=== PATIENT | male | born 1990 | race Caucasian/White ===

== ENCOUNTER 2017-06-23 21:26 | Emergency (ER) | payer OTHER, SELFPAY ==
--- NOTE | 2017-06-23 22:21 | RAD REPORT ---
EXAM DESCRIPTION: RAD - Chest Single View - 06/23/2017 10:14 pm CLINICAL HISTORY: Chest pain. Asthma. COMPARISON: None. FINDINGS: Portable technique limits examination quality. The lungs are grossly clear. The heart is normal in size. No displaced fractures. IMPRESSION: No acute intrathoracic process suspected.
[2017-06-23] MEDS ORDERED: CEFTRIAXONE 1000 MG/VIAL ONE (22:38)
[2017-06-23] MEDS ORDERED: AZITHROMYCIN 250 MG TAB ONE (22:38)
[2017-06-23] MEDS ORDERED: predniSONE 20 MG TAB ONE (22:39)
--- NOTE | 2017-06-23 22:59 | EDPHYS ---
Physician Documentation [facility] Name: Jean-Pierre Andrade Age: 27 yrs Sex: Male : 1990 Arrival Date: 06/23/2017 Time: 21:28 Bed 18 Private MD: ED Physician Gurvinder Goins HPI: 06/23 22:10 This 27 yrs old Male presents to ER via Wheelchair with complaints of Flu félix Symptoms, Asthma Exacerbation, Cough. 22:10 This 27 yrs old Male presents to ER via Wheelchair with complaints of Flu félix Symptoms, Asthma Exacerbation, Cough. 22:10 The patient presents to the emergency department with wheezing, Current therapy: félix albuterol nebs, that began without any particular precipitating event. Onset: The symptoms/episode began/occurred today. Modifying factors: The symptoms are alleviated by nothing. Associated signs and symptoms: The patient has no apparent associated signs or symptoms. Severity of symptoms: At their worst the symptoms were mild in the emergency department the symptoms are unchanged. The patient has not experienced similar symptoms in the past. Historical: - Allergies: 21:51 No Known Allergies; aa1 - Home Meds: 21:51 Albuterol Inhl [Active]; aa1 - PMHx: 21:51 Asthma; aa1 - PSHx: 21:51 aux lymph node removed; aa1 - Immunization history:: Flu vaccine is not up to date. - Social history:: Smoking status: Patient/guardian denies using tobacco. ROS: 22:11 Constitutional: Negative for fever, chills, and weight loss, Eyes: Negative for injury, félix pain, redness, and discharge, ENT: Negative for injury, pain, and discharge, Neck: Negative for injury, pain, and swelling, Cardiovascular: Negative for chest pain, palpitations, and edema, Abdomen/GI: Negative for abdominal pain, nausea, vomiting, diarrhea, and constipation, Back: Negative for injury and pain, : Negative for injury, bleeding, discharge, and swelling, MS/Extremity: Negative for injury and deformity, Skin: Negative for injury, rash, and discoloration, Neuro: Negative for headache, weakness, numbness, tingling, and seizure, Psych: Negative for depression, anxiety, suicide ideation, homicidal ideation, and hallucinations, Allergy/Immunology: Negative for hives, rash, and allergies, Endocrine: Negative for neck swelling, polydipsia, polyuria, polyphagia, and marked weight changes, Hematologic/Lymphatic: Negative for swollen nodes, abnormal bleeding, and unusual bruising. 22:11 Respiratory: Positive for cough, shortness of breath, on exertion. Exam: 22:11 Constitutional: This is a well developed, well nourished patient who is awake, alert, félix and in no acute distress. Head/Face: Normocephalic, atraumatic. Eyes: Pupils equal round and reactive to light, extra-ocular motions intact. Lids and lashes normal. Conjunctiva and sclera are non-icteric and not injected. Cornea within normal limits. Periorbital areas with no swelling, redness, or edema. ENT: Nares patent. No nasal discharge, no septal abnormalities noted. Tympanic membranes are normal and external auditory canals are clear. Oropharynx with no redness, swelling, or masses, exudates, or evidence of obstruction, uvula midline. Mucous membranes moist. Neck: Trachea midline, no thyromegaly or masses palpated, and no cervical lymphadenopathy. Supple, full range of motion without nuchal rigidity, or vertebral point tenderness. No Meningismus. Chest/axilla: Normal chest wall appearance and motion. Nontender with no deformity. No lesions are appreciated. Cardiovascular: Regular rate and rhythm with a normal S1 and S2. No gallops, murmurs, or rubs. Normal PMI, no JVD. No pulse deficits. Abdomen/GI: Soft, non-tender, with normal bowel sounds. No distension or tympany. No guarding or rebound. No evidence of tenderness throughout. Back: No spinal tenderness. No costovertebral tenderness. Full range of motion. Male : Normal genitalia with no discharge or lesions. Skin: Warm, dry with normal turgor. Normal color with no rashes, no lesions, and no evidence of cellulitis. MS/ Extremity: Pulses equal, no cyanosis. Neurovascular intact. Full, normal range of motion. Neuro: Awake and alert, GCS 15, oriented to person, place, time, and situation. Cranial nerves II-XII grossly intact. Motor strength 5/5 in all extremities. Sensory grossly intact. Cerebellar exam normal. Normal gait. Psych: Awake, alert, with orientation to person, place and time. Behavior, mood, and affect are within normal limits. 22:11 Respiratory: mild respiratory distress is noted, Respirations: normal, Breath sounds: rales, that are mild, bronchial sounds, that are mild, decreased breath sounds, that are mild, that are moderate, rhonchi, that are mild, wheezing: expiratory Vital Signs: 21:51 BP 126 / 62; Pulse 122; Resp 20; Temp 99.4(O); Pulse Ox 100% on R/A; Weight 65.77 kg; aa1 Height 5 ft. 5 in. (165.10 cm); Pain 6/10; 23:48 BP 113 / 64; Pulse 124; Resp 17 S; Pulse Ox 99% on R/A; Pain 0/10; jd3 21:51 Body Mass Index 24.13 (65.77 kg, 165.10 cm) aa1 MDM: 22:03 Patient medically screened. [facility] 22:11 Data reviewed: vital signs, nurses notes, lab test result(s), radiologic studies. [facility] 06/23 22:10 Order name: Influenza Screen (a \T\ B) [facility] 06/23 23:23 Order name: Influenza Screen (A [facility] 06/23 22:02 Order name: CXR XRAY [facility] 06/23 22:22 Order name: RAD; Complete Time: 22:58 EDMS Administered Medications: 22:27 Drug: Zithromax 500 mg Route: PO; jd3 23:02 Follow up: Response: No adverse reaction [facility] 22:27 Drug: Rocephin (cefTRIAXone) 1 grams Route: IM; Site: right deltoid; jd3 23:02 Follow up: Response: No adverse reaction jd3 22:28 Drug: predniSONE 60 mg Route: PO; jd3 23:03 Follow up: Response: No adverse reaction jd3 23:09 Drug: Albuterol - atroVENT (3:1) (2.5 mg - 0.5 mg) 3 ml Route: Nebulizer; jd3 23:50 Follow up: Response: No adverse reaction jd3 Disposition: 06/23/17 22:58 Discharged to Home. Impression: Asthma, Acute upper respiratory infection, unspecified. - Condition is Stable. - Discharge Instructions: Asthma, Adult, Upper Respiratory Infection, Adult, Upper Respiratory Infection, Pediatric, Cool Mist Vaporizers, Upper Respiratory Infection, Adult, [id number], Asthma, Adult, [id number], Cough, Adult. - Prescriptions for Albuterol Sulfate 2.5 mg /3 mL (0.083 %) Inhalation Solution for Nebulization - inhale 1 unit by NEBULIZATION route every 8 hours As needed; 1 box. Zithromax Z- Colt 250 mg Oral Tablet - take 1 tablet by ORAL route as directed for 5 days Day 1 - take two (2) tablets one time. Day 2, 3, 4 , 5 take one (1) tablet once daily.; 6 tablet. Prednisone 20 mg Oral Tablet - take 2 tablet by ORAL route once daily for 5 days; 10 tablet. Albuterol Sulfate 90 mcg/actuation - inhale 1-2 puff by INHALATION route every 4-6 hours; 1 Inhaler. - Medication Reconciliation Form, Thank You Letter, Antibiotic Education, Prescription Opioid Use form. - Work release form (06/24/17 00:02). jd3 - Follow up: Private Physician; When: 2 - 3 days; Reason: Recheck today's complaints, Re-evaluation by your physician. - Problem is new. - Symptoms have improved. Signatures: Dispatcher [employer] Laura Barber, RN RN aa1 Gurvinder Goins MD MD cha Davies, Jonathon, RN RN jd3
--- NOTE | 2017-06-23 22:59 | ER ---
Nurse's Notes [facility] Name: Jean-Pierre Andrade Age: 27 yrs Sex: Male : 1990 Arrival Date: 06/23/2017 Time: 21:28 Bed 18 Private MD: Diagnosis: Asthma;Acute upper respiratory infection, unspecified Presentation: 06/23 21:49 Presenting complaint: Patient states: asthma exacerbation for past few hours. Reports aa1 taking albuterol with minimal relief. Also reports fever for past couple of days. Transition of care: patient was not received from another setting of care. Onset of symptoms was June 23, 2017. Care prior to arrival: None. 21:49 Method Of Arrival: Wheelchair aa1 21:49 Acuity: GEOVANI 4 aa1 Triage Assessment: 21:51 General: Appears in no apparent distress. comfortable, Behavior is calm, cooperative, aa1 appropriate for age. Historical: - Allergies: 21:51 No Known Allergies; aa1 - Home Meds: 21:51 Albuterol Inhl [Active]; aa1 - PMHx: 21:51 Asthma; aa1 - PSHx: 21:51 aux lymph node removed; aa1 - Immunization history:: Flu vaccine is not up to date. - Social history:: Smoking status: Patient/guardian denies using tobacco. Screenin:05 Abuse screen: Denies threats or abuse. Nutritional screening: No deficits noted. jd3 Tuberculosis screening: No symptoms or risk factors identified. Fall Risk None identified. Total Amaral Fall Scale indicates No Risk (0-24 pts). Assessment: 22:02 General: Appears in no apparent distress. uncomfortable, Behavior is calm, cooperative, jd3 appropriate for age. Pain: Complains of pain in head Pain currently is 6 out of 10 on a pain scale. Quality of pain is described as aching. Neuro: Level of Consciousness is awake, alert, obeys commands, Oriented to person, place, time, situation. Cardiovascular: Heart tones S1 S2 present Capillary refill < 3 seconds Patient's skin is warm and dry. Respiratory: Reports shortness of breath Airway is patent Respiratory effort is even, unlabored, Respiratory pattern is regular, symmetrical, Breath sounds are clear bilaterally. GI: Abdomen is flat, Bowel sounds present X 4 quads. Abd is soft and non tender X 4 quads. Reports nausea. : No signs and/or symptoms were reported regarding the genitourinary system. EENT: No signs and/or symptoms were reported regarding the EENT system. Derm: Skin is intact, Skin is dry, Skin is normal, Skin temperature is warm. Musculoskeletal: Circulation, motion, and sensation intact. Range of motion: intact in all extremities. 23:33 Reassessment: Patient appears in no apparent distress at this time. Patient and/or jd3 family updated on plan of care and expected duration. Pain level reassessed. Patient is alert, oriented x 3, equal unlabored respirations, skin warm/dry/pink. pt waiting for neb treatment before discharge Patient states feeling better. 23:49 Reassessment: Patient appears in no apparent distress at this time. Patient and/or jd3 family updated on plan of care and expected duration. Pain level reassessed. Patient is alert, oriented x 3, equal unlabored respirations, skin warm/dry/pink. pt reporting understanding of discharge instructions, even and steady gait upon discharge Patient states feeling better. Vital Signs: 21:51 BP 126 / 62; Pulse 122; Resp 20; Temp 99.4(O); Pulse Ox 100% on R/A; Weight 65.77 kg; aa1 Height 5 ft. 5 in. (165.10 cm); Pain 6/10; 23:48 BP 113 / 64; Pulse 124; Resp 17 S; Pulse Ox 99% on R/A; Pain 0/10; jd3 21:51 Body Mass Index 24.13 (65.77 kg, 165.10 cm) aa1 ED Course: 21:28 Patient arrived in ED. am2 21:51 Triage completed. aa1 21:51 Arm band placed on left wrist. Patient placed in an exam room, on a stretcher. aa1 22:01 Rylan Mitchell RN is Primary Nurse. jd3 22:03 Gurvinder Goins MD is Attending Physician. [facility] 22:06 Patient has correct armband on for positive identification. Bed in low position. Call jd3 light in reach. Side rails up X 1. Adult w/ patient. 22:13 X-ray completed. Portable x-ray completed in exam room. Patient tolerated procedure la2 well. 23:49 No provider procedures requiring assistance completed. Patient did not have IV access jd3 during this emergency room visit. Administered Medications: 22:27 Drug: Zithromax 500 mg Route: PO; jd3 23:02 Follow up: Response: No adverse reaction jd3 22:27 Drug: Rocephin (cefTRIAXone) 1 grams Route: IM; Site: right deltoid; jd3 23:02 Follow up: Response: No adverse reaction jd3 22:28 Drug: predniSONE 60 mg Route: PO; jd3 23:03 Follow up: Response: No adverse reaction jd3 23:09 Drug: Albuterol - atroVENT (3:1) (2.5 mg - 0.5 mg) 3 ml Route: Nebulizer; jd3 23:50 Follow up: Response: No adverse reaction jd3 Outcome: 22:58 Discharge ordered by MD. heard 23:49 Discharged to home ambulatory, with family. jd3 23:49 Condition: stable 23:49 Discharge instructions given to patient, family, Instructed on discharge instructions, follow up and referral plans. medication usage, Demonstrated understanding of instructions, follow-up care, medications, Prescriptions given X 4. 23:51 Patient left the ED. jd3 Signatures: Laura Reese, RN RN aa1 Gurvinder Goins MD MD cha Moreno, Amanda am2 Ardoin, Leslie la2 Davies, Jonathon, RN RN jd3
[2017-06-23] MEDS ORDERED: IPRATROPIUM BROM 0.5MG/2.5ML ONE (23:25)
[2017-06-23] MEDS ORDERED: ALBUTEROL 2.5 MG/3 ML NEB SOL ONE (23:25)
== END 2017-06-23 23:51 | disposition home or self-care (01) ==
LOC: ER 21:26
DX: J06.9 Acute upper respiratory infection, unspecified (principal); J45.909 Unspecified asthma, uncomplicated
CPT/HCPCS: 71045; 87804; 94640; 96372; 99284; J7512

== ENCOUNTER 2021-04-22 06:40 | Emergency (ER) | payer SELFPAY ==
[2021-04-22] MEDS ORDERED: predniSONE 20 MG TAB ONE (07:39)
[2021-04-22] MEDS ORDERED: DIPHENHYDRAMINE 25 MG TAB/CAP ONE (07:39)
[2021-04-22] MEDS ORDERED: FAMOTIDINE 20 MG TAB ONE (07:39)
--- NOTE | 2021-04-22 07:46 | EDPHYS ---
Physician Documentation [facility] Name: Jean-Pierre Andrade Age: 31 yrs Sex: Male : 1990 Arrival Date: 04/22/2021 Time: 06:44 Bed 16 Private MD: JAIDA Physician Gurvinder Goins HPI: 04/22 07:40 This 31 yrs old Male presents to ER via Ambulatory with complaints of félix Allergic Reaction. 07:40 The patient presents with rash, redness of skin, swelling of the lips. Onset: The félix symptoms/episode began/occurred 2 day(s) ago. Associated signs and symptoms: Pertinent positives: hives, rash, swelling. Possible causes: poison ebonie, poison oak. At home the patient or guardian has treated the symptoms with Benadryl. Severity of symptoms: At their worst the symptoms were moderate in the emergency department the symptoms are unchanged. The patient has experienced similar episodes in the past, a few times. cutting a tree 2 days ago. Historical: - Allergies: 06:53 No Known Allergies; ll3 - Home Meds: 06:53 Albuterol Inhl [Active]; ll3 - PMHx: 06:53 Asthma; ll3 - PSHx: 06:53 None; ll3 - Immunization history:: Client reports having NOT received the Covid vaccine. - Social history:: Smoking status: Patient reports the use of cigarette tobacco products, 1/4 PPD. ROS: 07:43 Constitutional: Negative for fever, chills, and weight loss, Eyes: Negative for injury, félix pain, redness, and discharge, ENT: Negative for injury, pain, and discharge, Neck: Negative for injury, pain, and swelling, Cardiovascular: Negative for chest pain, palpitations, and edema, Respiratory: Negative for shortness of breath, cough, wheezing, and pleuritic chest pain, Abdomen/GI: Negative for abdominal pain, nausea, vomiting, diarrhea, and constipation, Back: Negative for injury and pain, : Negative for injury, bleeding, discharge, and swelling, MS/Extremity: Negative for injury and deformity, Neuro: Negative for headache, weakness, numbness, tingling, and seizure, Psych: Negative for depression, anxiety, suicide ideation, homicidal ideation, and hallucinations, Allergy/Immunology: Negative for hives, rash, and allergies, Endocrine: Negative for neck swelling, polydipsia, polyuria, polyphagia, and marked weight changes, Hematologic/Lymphatic: Negative for swollen nodes, abnormal bleeding, and unusual bruising. 07:43 Skin: Positive for erythema, rash, of the face, pelvis, right arm and left arm. Exam: 07:43 Constitutional: This is a well developed, well nourished patient who is awake, alert, félix and in no acute distress. Eyes: Pupils equal round and reactive to light, extra-ocular motions intact. Lids and lashes normal. Conjunctiva and sclera are non-icteric and not injected. Cornea within normal limits. Periorbital areas with no swelling, redness, or edema. ENT: Nares patent. No nasal discharge, no septal abnormalities noted. Tympanic membranes are normal and external auditory canals are clear. Oropharynx with no redness, swelling, or masses, exudates, or evidence of obstruction, uvula midline. Mucous membranes moist. Neck: Trachea midline, no thyromegaly or masses palpated, and no cervical lymphadenopathy. Supple, full range of motion without nuchal rigidity, or vertebral point tenderness. No Meningismus. Chest/axilla: Normal chest wall appearance and motion. Nontender with no deformity. No lesions are appreciated. Cardiovascular: Regular rate and rhythm with a normal S1 and S2. No gallops, murmurs, or rubs. Normal PMI, no JVD. No pulse deficits. Respiratory: Lungs have equal breath sounds bilaterally, clear to auscultation and percussion. No rales, rhonchi or wheezes noted. No increased work of breathing, no retractions or nasal flaring. Abdomen/GI: Soft, non-tender, with normal bowel sounds. No distension or tympany. No guarding or rebound. No evidence of tenderness throughout. Back: No spinal tenderness. No costovertebral tenderness. Full range of motion. MS/ Extremity: Pulses equal, no cyanosis. Neurovascular intact. Full, normal range of motion. Neuro: Awake and alert, GCS 15, oriented to person, place, time, and situation. Cranial nerves II-XII grossly intact. Motor strength 5/5 in all extremities. Sensory grossly intact. Cerebellar exam normal. Normal gait. Psych: Awake, alert, with orientation to person, place and time. Behavior, mood, and affect are within normal limits. 07:43 Head/face: Noted is rash, swelling, that is moderate, of the right eye, right cheek, left cheek and mouth. 07:43 ENT: Mouth: no acute changes, Lips: normal, moist, Oral mucosa: normal, pink and intact, Gums: normal with healthy appearance, Tongue: is normal, abscess, is not appreciated, Posterior pharynx: is normal, no acute changes. Vital Signs: 06:49 BP 129 / 79; Pulse 64; Resp 15; Temp 97.8(TE); Pulse Ox 100% on R/A; Weight 68.04 kg ll3 (R); Height 5 ft. 5 in. (165.10 cm) (R); Pain 4/10; 06:49 Body Mass Index 24.96 (68.04 kg, 165.10 cm) ll3 MDM: 07:09 Patient medically screened. félix 07:47 Differential diagnosis: impetigo, allergic reaction, angioedema, urticaria. Data félix reviewed: vital signs, nurses notes. Data interpreted: compliance monitor: not applicable for this patient encounter. rhythm is regular. Counseling: I had a detailed discussion with the patient and/or guardian regarding: the presence of at least one elevated blood pressure reading (>120/80) during this emergency department visit. Administered Medications: 07:43 Drug: predniSONE 60 mg Route: PO; ph 08:15 Follow up: Response: No adverse reaction ph 07:44 Drug: Benadryl (diphenhydrAMINE) 50 mg Route: PO; ph 08:16 Follow up: Response: No adverse reaction ph 07:44 Drug: Pepcid (famotidine) 40 mg Route: PO; ph 08:15 Follow up: Response: No adverse reaction ph Disposition Summary: 04/22/21 07:46 [facility]charge [facility]: new félix Symptoms: have improved félix Condition: Stable félix Diagnosis - Allergic contact dermatitis due to plants, except food félix Followup: félix - With: Private Physician - When: 2 - 3 days - Reason: Recheck today's complaints, Continuance of care, Re-evaluation by your physician Discharge Instructions: - Discharge Summary Sheet félix - Allergies, Adult félix - Contact Dermatitis félix - Poison Ebonie Dermatitis félix - Poison Campbell Dermatitis félix - Rash, Adult félix - Rash, Adult, [id number] félix - Poison Ebonie Dermatitis, [id number] félix Forms: - Medication Reconciliation Form félix - Thank You Letter félix - Antibiotic Education félix - Prescription Opioid Use félix - Work release form Prescriptions: - Benadryl 25 mg Oral Capsule - take 2 capsule by ORAL route every 6 hours As needed; 45 tablet; [facility] Product [facility] Permitted - Pepcid 20 mg Oral Tablet - take 1 tablet by ORAL route every 12 hours for 15 days; 30 tablet; [facility]: [facility] Product Selection Permitted - Prednisone 20 mg Oral Tablet - take 2 tablets by ORAL route once daily for 5 days; 10 tablet; [facility]ills: [facility], [facility] Product Selection Permitted Signatures: Gurvinder Goins MD MD cha Hall, Patricia RN RN ph Tahira Cardozo RN RN ll3
--- NOTE | 2021-04-22 07:46 | ER ---
Nurse's Notes [facility] Name: Jean-Pierre Andrade Age: 31 yrs Sex: Male : 1990 Arrival Date: 04/22/2021 Time: 06:44 Bed 16 Private MD: Diagnosis: Allergic contact dermatitis due to plants, except food Presentation: 04/22 06:49 Chief complaint: Patient states: Was cutting down tree on Wednesday and got exposed to ll3 poison esther, right eye, face, and lips swollen, and itchy. Coronavirus screen: At this time, the client does not indicate any symptoms associated with coronavirus-19. Ebola Screen: No symptoms or risks identified at this time. Onset: The symptoms/episode began/occurred Started swelling Wednesday . Anaphylaxis evaluation, no signs or symptoms of anaphylaxis were noted. Initial Sepsis Screen: Does the patient meet any 2 criteria? No. Patient's initial sepsis screen is negative. Does the patient have a suspected source of infection? No. Patient's initial sepsis screen is negative. Risk Assessment: Do you want to hurt yourself or someone else? Patient reports no desire to harm self or others. Onset of symptoms was April 20, 2021. 06:49 Method Of Arrival: Ambulatory ll3 06:49 Acuity: GEOVANI 3 ll3 Triage Assessment: 06:53 General: Appears in no apparent distress. uncomfortable, Behavior is calm, cooperative. ll3 Pain: Complains of pain in face. EENT: Lid(s) Right lid swollen. Lips swollen . Throat is clear is pink. Respiratory: Respiratory effort is even, unlabored, Respiratory pattern is regular, agonal. Derm: Skin is pink, warm \T\ dry. Rash noted that is itchy, on face Reports itching. Historical: - Allergies: 06:53 No Known Allergies; ll3 - Home Meds: 06:53 Albuterol Inhl [Active]; ll3 - PMHx: 06:53 Asthma; ll3 - PSHx: 06:53 None; ll3 - Immunization history:: Client reports having NOT received the Covid vaccine. - Social history:: Smoking status: Patient reports the use of cigarette tobacco products, 1/4 PPD. Screenin:10 Abuse screen: Denies threats or abuse. Denies injuries from another. Nutritional ph screening: No deficits noted. Tuberculosis screening: No symptoms or risk factors identified. Fall Risk None identified. Assessment: 07:45 General: Appears in no apparent distress. comfortable, Behavior is calm, cooperative, ph appropriate for age. Pain: Denies pain. Neuro: Level of Consciousness is awake, alert, obeys commands, Oriented to person, place, time, situation. Cardiovascular: Capillary refill < 3 seconds in bilateral fingers Patient's skin is warm and dry. Cardiovascular: No deficits noted. Denies shortness of breath. Respiratory: Airway is patent Respiratory effort is even, unlabored, Respiratory pattern is regular, symmetrical. Respiratory: Breath sounds are clear bilaterally. Derm: Skin is intact, is healthy with good turgor, Skin is pink, warm \T\ dry. Rash noted that is red, with swelling to L side of face and bilateral ears. Musculoskeletal: Circulation, motion, and sensation intact. Range of motion: intact in all extremities. Vital Signs: 06:49 BP 129 / 79; Pulse 64; Resp 15; Temp 97.8(TE); Pulse Ox 100% on R/A; Weight 68.04 kg ll3 (R); Height 5 ft. 5 in. (165.10 cm) (R); Pain 4/10; 06:49 Body Mass Index 24.96 (68.04 kg, 165.10 cm) ll3 ED Course: 06:44 Patient arrived in ED. es 06:53 Triage completed. ll3 06:53 Arm band placed on Patient placed in an exam room. ll3 07:01 Carlota Dobbs RN is Primary Nurse. ph 07:09 Gurvinder Goins MD is Attending Physician. félix 07:10 Patient has correct armband on for positive identification. Bed in low position. Call ph light in reach. Door closed. Noise minimized. 08:16 No provider procedures requiring assistance completed. Patient did not have IV access ph during this emergency room visit. Administered Medications: 07:43 Drug: predniSONE 60 mg Route: PO; ph 08:15 Follow up: Response: No adverse reaction ph 07:44 Drug: Benadryl (diphenhydrAMINE) 50 mg Route: PO; ph 08:16 Follow up: Response: No adverse reaction ph 07:44 Drug: Pepcid (famotidine) 40 mg Route: PO; ph 08:15 Follow up: Response: No adverse reaction ph Outcome: 07:46 Discharge ordered by . félix 08:16 Discharged to home ambulatory, with significant other. ph 08:16 Condition: good 08:16 Discharge instructions given to patient, Instructed on discharge instructions, follow up and referral plans. medication usage, Demonstrated understanding of instructions, follow-up care, medications, Prescriptions given X 3. 08:16 Patient left the ED. ph Signatures: Gurvinder Goins MD MD cha Salyer, Edna es Hall, Patricia RN RN Tahira Cardozo RN RN ll3
[2021-04-22 08:22] VITALS: BP 129/79; TEMP 97.8; O2SAT 100
== END 2021-04-22 08:16 | disposition home or self-care (01) ==
LOC: ER 06:40
DX: L23.7 Allergic contact dermatitis due to plants, except food (principal); J45.909 Unspecified asthma, uncomplicated; Z72.0 Tobacco use
CPT/HCPCS: 99283; J7512